=== PATIENT | female | born 2000 | race Caucasian/White ===

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

== ENCOUNTER 2018-06-18 14:26 | Emergency (ER) | payer SELFPAY ==
[~2018-06-18] VITALS: Ht 160 cm; Wt 62.9 kg
[2018-06-18 14:35] VITALS: BP 113/77
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
== END 2018-06-18 14:46 | disposition left against medical advice (07) ==
LOC: ED 14:40
DX: N76.0 Acute vaginitis (principal)
CPT/HCPCS: 99281